=== PATIENT | male | born 1985 | race Caucasian/White ===

== ENCOUNTER 2024-12-13 17:44 | Emergency (ER) | payer OTHER ==
[~2024-12-13] VITALS: Ht 177.8 cm; Wt 104.3 kg
[2024-12-13] MEDS: IV NS 0.9% 1,000 ML BAG IV ONE (18:30)
[2024-12-13 18:57] LABS: PLATELET COUNT (AUTO) 295 K/uL (150-450); RED BLOOD CELL COUNT(AUTO) 4.64 MIL/uL (4.5-6.0); RED CELL DISTRIBUTION WIDTH 14.5 % (11.5-15.0); WHITE BLOOD COUNT (AUTO) 13.7 K/uL (4.3-11.0)
[2024-12-13 19:04] LABS: CALCIUM, SERUM 8.8 mg/dL (8.5-10.1); CREATININE 0.8 mg/dL (0.6-1.3); SODIUM SERUM 137.0 mmol/L (136-145); UREA NITROGEN, BLOOD 23.0 mg/dL (7-18)
[2024-12-13] MEDS ORDERED: LISINOPRIL (20MG) 20 MG TABLET ONE (19:05)
[2024-12-13 19:10] LABS: ASPARTATE AMINOTRANSFERASE 23.0 U/L (15-37); TOTAL PROTEIN, SERUM 7.6 g/dL (6.4-8.2)
[2024-12-13] MEDS: LISINOPRIL (20MG) 20 MG TABLET PO SCH (19:10)
[2024-12-13 19:58] VITALS: BP 143/89; TEMP 98; O2SAT 99
== END 2024-12-13 19:58 | disposition home or self-care (01) ==
LOC: ER 17:46
DX: S90.829A Blister (nonthermal), unspecified foot, initial encounter (principal); E86.0 Dehydration; F31.9 Bipolar disorder, unspecified; I10 Essential (primary) hypertension; Z59.00 Homelessness unspecified; Z79.899 Other long term (current) drug therapy
CPT/HCPCS: 99283; 96360; 85025; 36415; 80053; J7030

== ENCOUNTER 2025-01-20 15:18 | Emergency (ER) | payer OTHER ==
[~2025-01-20] VITALS: Ht 177.8 cm; Wt 98.9 kg
[2025-01-20 16:29] VITALS: BP 155/95; TEMP 98.3; O2SAT 95
== END 2025-01-20 19:57 | disposition left against medical advice (07) ==
LOC: ER 15:30
DX: Z53.21 Procedure and treatment not carried out due to patient leaving prior to being seen by health care provider (principal)